=== PATIENT | female | born 1980 | race Caucasian/White ===

== ENCOUNTER 2018-02-01 13:47 | Emergency (ER) | payer OTHER ==
[~2018-02-01] VITALS: Ht 167.6 cm; Wt 69.1 kg
[2018-02-01 13:52] VITALS: BP 119/81; PULSE 87; TEMP 98.3
[2018-02-01] MEDS ORDERED: TOPROL XL 25MG25 MG PO (14:04)
[2018-02-01] MEDS ORDERED: BIRTH CONTROL PO (14:05)
[2018-02-01] MEDS ORDERED: MULTI VITAMINS1 TAB PO (14:05)
== END 2018-02-01 14:28 | disposition home or self-care (01) ==
LOC: COL.ER 13:47
DX: S61.211A Laceration without foreign body of left index finger without damage to nail, initial encounter (principal); I42.9 Cardiomyopathy, unspecified; W26.0XXA Contact with knife, initial encounter

== ENCOUNTER 2018-05-07 08:17 | Emergency (ER) | payer OTHER ==
[~2018-05-07] VITALS: Ht 167.6 cm; Wt 65.9 kg
[~2018-05-07 08:17] MED LIST: BIRTH CONTROL PO; MULTI VITAMINS1 TAB PO; TOPROL XL 25MG25 MG PO
[2018-05-07 08:20] VITALS: TEMP 98.7
[2018-05-07] MEDS ORDERED: CILOXAN 10 ML10 ML OS (08:49)
[2018-05-07 09:13] VITALS: BP 112/72; PULSE 82
== END 2018-05-07 09:13 | disposition home or self-care (01) ==
LOC: COL.ER 08:17
DX: H10.89 Other conjunctivitis (principal); I42.9 Cardiomyopathy, unspecified; B99.9 Unspecified infectious disease; Z87.891 Personal history of nicotine dependence; Z88.0 Allergy status to penicillin

== ENCOUNTER 2019-10-25 08:03 | Day surgery (SDC) | payer OTHER ==
[~2019-10-25] VITALS: Ht 167.7 cm; Wt 70.8 kg
[2019-10-25] VITALS (11 sets, daily range): BP systolic 88–101; BP diastolic 45–74; PULSE 57–87; TEMP 98
[~2019-10-25 08:03] MED LIST changes: +CILOXAN 10 ML10 ML OS; +FIBER0.52 GM PO
[2019-10-25 09:01] LABS: HEMATOCRIT 37.1 % (37.0-47.0); HEMOGLOBIN 11.9 g/dl (12.5-16.0); MEAN CELL VOLUME 102 fl (80.0-100.0); MEAN CORPUSCULAR HEMOGLOBIN 33 pg (27.0-31.0); MEAN CORPUSCULAR HGB CONC 32 g/dl (33.0-37.0); MEAN PLATELET VOLUME 10.1 fl (7.4-10.4); PLATELET COUNT 216 K/mm3 (130-400); RED BLOOD COUNT 3.63 M/mm3 (4.10-5.30); REDCELL DISTRIBUTION WIDTH-CV 11.9 % (11.5-14.5)
[2019-10-25 09:08] LABS: INR 1.1 (0.8-3.0); PROTHROMBIN TIME 11.9 SECONDS (9.7-12.8)
[2019-10-25 09:10] LABS: CALCIUM 8.6 mg/dL (8.4-10.2); CREATININE, serum 0.66 (0.52-1.25); POTASSIUM 4.1 mmol/L (3.4-5.0)
--- NOTE | 2019-10-25 10:08 | NUR ---
SEE MERGE FOR MEDICATION ADMINISTRATION TIMES AND INTRA AND POST SEDATION ASSESSMENTS.
--- NOTE | 2019-10-25 10:45 | NUR ---
Report from Violeta REID. Back by bed to [id number]. Right groin site CD&I, pedal pulses noted. VSS
--- NOTE | 2019-10-25 14:30 | NUR ---
INT discontinued intact.
--- NOTE | 2019-10-25 14:53 | NUR ---
Discharge instructions given. Transferred to private car by zi
== END 2019-10-25 14:54 | disposition home or self-care (01) ==
LOC: COL.CAR 08:03
PROVIDERS: Internal Medicine Cardiovascular Disease
DX: R07.89 Other chest pain (principal)
CPT/HCPCS: C1760; C1894; J1644; J2250; J3010; Q9967